=== PATIENT | male | born 1975 | race Hispanic/Latino ===

== ENCOUNTER 2019-08-05 17:44 | Emergency (ER) | payer OTHER, SELFPAY ==
--- NOTE | 2019-08-05 17:54 | ED.URI ---
HPI - URI/Sore Throat General Stated Complaint: pain in nose/cheek - swelling also Time Seen by Provider: 08/05/19 17:55 Source: patient and RN notes reviewed Mode of arrival: ambulatory Limitations: no limitations History of Present Illness HPI Narrative: 43-year-old male presents with concern for painful tender nose. Reports he may have had a pimple inside of his nose yesterday and now the outside of his nose is red, tender. He denies recent colds, nasal congestion, rhinorrhea, fever, cough, sore throat. Denies taking any medications for this problem. MD elicited complaint: other (nasal swelling) Related Data Allergies Allergy/AdvReac Type Severity Reaction Status Date / Time No Known Allergies Allergy Unknown Unverified 10/23/17 20:17 Review of Systems Review of Systems: Narrative: CONSTITUTIONAL: Denies malaise, chills, sweats, or fever. EYES: Denies visual changes, redness, or discharge. ENT: Denies rhinorrhea, congestion, sinus pain, otalgia or sore throat. CARDIOVASCULAR: Denies chest pain, palpitations, or edema. RESPIRATORY: Denies cough or dyspnea. SKIN: Red, tender right external nose, internal MUSCULOSKELETAL: Denies myalgia. NEUROLOGIC: Denies headache All systems reviewed & are unremarkable except as noted in HPI and below PMFSH Comments At time of signature, agree with nursing past medical, surgical, social and family history. There is no relevant family history pertinent to the presenting complaint Exam Narrative: Exam Narrative: GENERAL: Well-appearing, well-nourished, and in no acute distress. HEAD: Normocephalic, atraumatic. EYES: PERRLA, conjunctivae clear, and EOMI. No nystagmus. ENT: Nares clear, turbinates pink, no rhinorrhea or epistaxis. No septal hematomas. Mucous membranes moist. NECK: Supple. No lymphadenopathy. CHEST: No respiratory distress. Speaks in full sentences. HEART: Regular rate and rhythm. SKIN: Warm, dry, no rash. External nose erythematous, mildly indurated, tender consistent with cellulitis NEURO: Alert and oriented x3. PSYCH: Normal mood and affect Course Course Emergency Course: Patient is aware of diagnosis, understands and agrees to treatment plan. Anticipatory guidance given. Patient agrees to follow-up as directed and is aware of reasons to seek care at the emergency department. Portions of this record may have been created with voice recognition software Vital Signs Vital signs: Vital Signs Temperature 98.3 F 08/05/19 17:55 Pulse Rate 91 08/05/19 17:55 Respiratory Rate 18 08/05/19 17:55 Blood Pressure 136/86 08/05/19 17:55 Pulse Oximetry 100 08/05/19 17:55 Temperature 98.3 F 08/05/19 17:55 Pulse Rate 91 08/05/19 17:55 Respiratory Rate 18 08/05/19 17:55 Blood Pressure 136/86 08/05/19 17:55 Pulse Oximetry 100 08/05/19 17:55 Reviewed. Patient has a history of hypertension MDM - URI/Sore Throat MDM Narrative Medical decision making narrative: Differential diagnosis considered: Strep pharyngitis, allergic rhinitis, upper respiratory tract infection, sinusitis, rhinosinusitis, nasopharyngitis. viral pharyngitis, otitis media, otitis externa, pneumonia, bronchitis, viral cough syndrome, viral syndrome, and influenza. Exam findings show no acute concerns or changes; patient is non-toxic appearing and is in no distress. Patient is appropriate for outpatient treatment and follow-up. Critical Care Time Critical Care Time Critical Care Time: No Discharge Plan Discharge Clinical Impression: Cellulitis of external nose Patient Disposition: Home, Self-Care Condition: Stable Instructions: Antibiotic Form, Cellulitis (ED) Additional Instructions: Please follow up with your Primary Care Doctor within 48-72 hours - call for an appointment. Rest and elevate affected area; apply moist heat 3-4 times daily for 10-15 minutes. Take Motrin 600mg every 8 hours with food for pain. Please take Antibiotics as directed. If you experie
[2019-08-05 17:55] VITALS: BP 136/86; PULSE 91; RESP 18; TEMP 36.8; O2SAT 100
== END 2019-08-05 18:05 | disposition home or self-care (01) ==
PROVIDERS: Emergency Provider Nurse Practitioner; PCP Nurse Practitioner Family
DX: J34.0 Abscess, furuncle and carbuncle of nose (principal)
CPT/HCPCS: 99213; G0463

== ENCOUNTER 2022-08-03 18:26 | Emergency (ER) | payer OTHER, SELFPAY ==
[2022-08-03 18:31] VITALS: BP 124/73; PULSE 73; RESP 16; TEMP 37.1; O2SAT 98
--- NOTE | 2022-08-03 18:59 | ED.GENADULT ---
HPI - General Adult General Chief complaint: Skin/Abscess/Foreign Body Stated complaint: Insect Bite Source: patient Mode of arrival: ambulatory Limitations: no limitations History of Present Illness HPI narrative: Patient presents for evaluation of 2 tick bites the right supraclavicular region. He noticed that takes about 5 days ago. He removed them at that time. He now reports redness in the affected area and some tenderness in the trapezius muscle on the right side. No fever, chills, nausea, vomiting, fatigue. He is unsure how long the ticks had been attached. He states his dogs spend quite a bit of time outside. He recently noticed another tick on his couch. He is not diabetic. He does not smoke. He has a hx of Hep C but was treated successfully for it. Related Data Home Medications Medication Instructions Recorded Confirmed alprazolam 0.5 mg tablet 0.5 mg PO HS PRN anxiety 08/05/19 08/03/22 amlodipine 10 mg tablet 10 mg PO DAILY 08/05/19 08/03/22 cyclobenzaprine 5 mg tablet 5 mg PO HS 08/05/19 08/03/22 dicyclomine 10 mg capsule 100 mg PO BID 08/05/19 08/03/22 hydroxyzine HCl 25 mg tablet 25 mg PO BID 08/05/19 08/03/22 omeprazole 20 mg capsule,delayed 20 mg PO DAILY 08/05/19 08/03/22 release atenolol PO DAILY 08/03/22 Allergies Allergy/AdvReac Type Severity Reaction Status Date / Time No Known Allergies Allergy Unknown Verified 08/03/22 18:48 Review of Systems Review of Systems: CONSTITUTIONAL: Denies fever, chills, or sweats. EYES: Denies visual changes, redness, or discharge. ENT: Denies rhinorrhea, congestion, sore throat, or otalgia. CARDIOVASCULAR: Denies chest pain, palpitations, or edema. RESPIRATORY: Denies cough or dyspnea. GASTROINTESTINAL: Denies abdominal pain, nausea, vomiting, or diarrhea. GENITOURINARY: Denies dysuria or hematuria. SKIN: Reports 2 areas of erythema the right lateral aspect of his neck/supraclavicular region. MUSCULOSKELETAL: Reports pain in region of right trapezius. NEUROLOGIC: Denies headache, numbness, dizziness, or weakness. PSYCHIATRIC: Denies anxiety or depression. PMFSH Past Medical History Medical History Anxiety Diverticulosis Hepatitis C Hypertension Surgical History Surgical History No pertinent past surgical history Family History Family History Father Family history non-contributory Social History Social History Alcohol intake: current Alcohol use details: a few drinks twice per week Gender identity (if verbalized by the patient): Male Spiritual care concerns: No Exam Narrative: GENERAL: Well-appearing, well-nourished, and in no acute distress. HEAD: Normocephalic, atraumatic. EYES: PERRLA and EOMI. ENT: Nares clear, no rhinorrhea or epistaxis. Mucous membranes moist. Oropharynx without tonsillar hypertrophy exudate or other lesions. Bilateral TMs pearly sanchez nonbulging NECK: Supple. No adenopathy or masses. No carotid bruits or JVD CHEST: Clear to auscultation. No respiratory distress. No wheezes rales or rhonchi HEART: Regular rate and rhythm. No murmur heard. Normal peripheral pulses. ABDOMEN: Soft, nontender, nondistended, normal active bowel sounds. EXTREMITIES: Normal range of motion. No edema. SKIN: (2)areas of erythema to right supraclavicular region which are both about 3 cm in size. NEURO: No focal deficits. Alert and oriented x3. PSYCH: Normal mood and affect. Course Course Emergency Course: This is a 46-year-old male who presented for evaluation of 2 areas of redness to the right supraclavicular region following tick bites. This could be an early erythema migrans. Will treat with 10 day course of doxycycline. Increase hydration. [id number] agents for sympt
== END 2022-08-03 18:58 | disposition home or self-care (01) ==
PROVIDERS: Emergency Provider Nurse Practitioner; PCP Nurse Practitioner Family
DX: S10.86XA Insect bite of other specified part of neck, initial encounter (principal); W57.XXXA Bitten or stung by nonvenomous insect and other nonvenomous arthropods, initial encounter; I10 Essential (primary) hypertension; F41.9 Anxiety disorder, unspecified
CPT/HCPCS: 99213; G0463

== ENCOUNTER 2023-11-18 09:13 | Emergency (ER) | payer OTHER, SELFPAY ==
[2023-11-18 09:13] VITALS: BP 147/96; PULSE 86; RESP 16; TEMP 36.4; O2SAT 97
[2023-11-18 09:27] VITALS: BP 147/96; PULSE 86; RESP 16; TEMP 36.4; O2SAT 97
== END 2023-11-18 10:10 | disposition left against medical advice (07) ==
PROVIDERS: Emergency Provider Emergency Medicine; PCP Nurse Practitioner Family
DX: Z00.00 Encounter for general adult medical examination without abnormal findings (principal)
CPT/HCPCS: 99199